=== PATIENT | female | born 1965 | race Caucasian/White ===

== ENCOUNTER → 2016-07-04 | Outpatient (CLI) | payer OTHER ==
[~2016-07-04] MED LIST: BLAC1TAB PO; CALCTAB5 PO; CHOL100010 PO; FEXO1TAB46 PO; FLUO20CA35 PO; LAMO25TA PO; LORA-741 PO; MELO7.5T5 PO; MULT-330 PO; OMEG10007 PO; PRLSR20 PO; RANI150T3 PO
--- NOTE | 2016-07-04 19:28 | DIAGNOSTIC IMAGING REPORT ---
LUMBAR SPINE 5 VIEWS CLINICAL HISTORY: Low back pain. FINDINGS: Five views of the lumbar spine are correlated with abdominal CT dated 08/04/2006. The skeletal structures are osteopenic. There is no radiographic evidence of fracture or malalignment. Vertebral body height is maintained throughout the lumbar spine. There is minimal retrolisthesis at L2-L3. Alignment is otherwise preserved. Mild hyperlordosis is noted. The transverse and spinous processes appear intact. There is no evidence of spondylolysis. Anterior osteophytes are seen throughout. There is advanced degenerative disc space narrowing at L4-L5 and L5-S1 with associated endplate sclerosis. Only mild narrowing is seen at the remaining lumbar levels. The bony pelvis is intact as visualized. There is a nonobstructed abdominal bowel gas pattern. IMPRESSION: 1. No acute bony abnormality is seen in the lumbosacral spine. 2. Osteopenia and spondylotic change as above. Dictated: 07/04/2016 7:06 PM Transcribed: 07/04/2016 7:28 PM [email or web address] Electronically signed by: Jong Oden M.D. 07/04/2016 7:28 PM Dictated Date/Time: 07/04/2016 7:06 PM
== END | disposition home or self-care (01) ==
LOC: C.RAD 16:25
PROVIDERS: ATTEND Nurse Practitioner Family
DX: M54.5 Low back pain (principal); M85.88 Other specified disorders of bone density and structure, other site

== ENCOUNTER 2017-01-20 16:14 | Emergency (ER) | payer OTHER ==
[~2017-01-20] VITALS: Ht 160 cm; Wt 108.7 kg
[~2017-01-20 16:14] MED LIST changes: -BLAC1TAB PO; -FLUO20CA35 PO; -OMEG10007 PO; -PRLSR20 PO
[2017-01-20 16:30] VITALS: TEMP 36.6; Ht 160 cm; Wt 108.7 kg
--- NOTE | 2017-01-20 17:09 | DIAGNOSTIC IMAGING REPORT ---
L WRIST MIN 3 VIEWS ROUTINE CLINICAL HISTORY: 51 years-old Female presenting with fall; L wrist pain. TECHNIQUE: Frontal, bilateral oblique, and lateral views of the left wrist were obtained. COMPARISON: None. FINDINGS: Mild degenerative changes at the first carpometacarpal articulation evidence by osteophytosis. No acute fracture or malalignment. No radiographic soft tissue abnormality. IMPRESSION: No acute osseous injury of the left wrist. Electronically signed by: Stef Ansari M.D. 01/20/2017 5:07 PM Dictated Date/Time: 01/20/2017 5:07 PM
[2017-01-20] MEDS ORDERED: CALC-393 PO (17:13)
[2017-01-20] MEDS ORDERED: LXP/20 PO (17:13)
[2017-01-20] MEDS ORDERED: CHOL2000 PO (17:13)
[2017-01-20] MEDS ORDERED: LAMO1TAB21 PO (17:13)
[2017-01-20] MEDS ORDERED: OMEG10007 PO (17:17)
[2017-01-20 17:51] VITALS: BP 146/84; PULSE 67; O2SAT 95
--- NOTE | 2017-01-21 01:10 | EMERGENCY ROOM VISIT NOTE ---
ED Visit Note First contact with patient: 16:41 Chief Complaint: Fell and hurt my left wrist. History of Present Illness: Ms. Harrell is a 51-year-old white female who ambulates into the ED complaining of left distal radius and ulna pain. Patient reports approximately 2 hours ago she was walking across her yard to her mother's house, slipped and fell onto her left wrist. Since that time she has been having constant pain over the distal radius and ulna. She describes her pain as a burning and throbbing sensation. She rates her discomfort 6/10. Her pain is nonradiating. Her pain worsens with palpation of the distal radius and ulna but none in the anatomical snuffbox and flexion, extension and radial and ulnar deviation of the wrist. She is not identified any alleviating factors related to the pain. She has not taken any medications for pain prior to arrival at the hospital. Associated with her pain she does report that she did also fall onto her left knee and she is having a small amount of pain there but reports after the injury she was able to stand up and walk. She places this discomfort over the anterior aspect of the right knee. She does not rate her describe her discomfort. She reports her pain is minimal. She has not identified any aggravating or alleviating factors related to pain. She denies any associated lightheadedness, dizziness, striking her head, loss of consciousness at the time of the fall, any signs of head injury since the fall, neck pain, back pain, left shoulder and elbow pain, left hand weakness/ numbness/tingling, previous injuries to the wrist or surgeries, right hip pain, right lower leg pain, right lower leg weakness/numbness/tingling. Review of Systems: As noted above in history of present illness. 8 body systems were reviewed and found to be negative as noted above. Past Medical History: Depression, anxiety, GERD, seasonal allergies and status post tubal ligation and bunionectomy. Current Medications: Gena, multivitamin minerals, omega-3, Zantac, calcium, multivitamins, Lamotrigine, Escitalopram. Allergies to Medications: Wellbutrin, codeine. Social History: Patient is currently employed; she feels safe in her home environment; she denies tobacco and alcohol use. Physical Examination: Vital Signs: Date Time Temp Pulse Resp B/P (MAP) Pulse Ox O2 Delivery O2 Flow Rate FiO2 01/20/17 17:51 67 146/84 95 01/20/17 16:30 36.6 92 18 149/82 96 Room Air GENERAL: 51-year-old female in mild distress due to pain, nontoxic-appearing, afebrile and hemodynamically stable. NEUROLOGICAL: Awake, alert and oriented to person, place and time. Answering questions appropriately and following commands. SKIN: Warm, dry and pink. No soft tissue trauma noted. LEFT UPPER EXTREMITY: No gross bony deformity. No tenderness in the elbow, proximal forearm, hand. Moderate tenderness over the distal radius and ulna predominately over the anterior aspect of the wrist. No tenderness in the anatomical snuffbox. No gross bony deformity, bony crepitus, swelling or ecchymosis. Slight decreased range of motion in all movements at the wrist due to pain. Full range of motion and full muscle strength in flexion and extension of all MCP, PIP and DIP joints. Capillary refill is brisk. She is able to distinguish light sensations through all dermatomes. RIGHT LOWER EXTREMITY: No gross bony deformity. No shortening or malrotation. No tenderness in the hip, thigh, lower leg or ankle. Mild tenderness over the anterior aspect of the knee just lateral to the patella. In this area there is a soft tissue contusion. Negative patellar apprehension test. Negative bounce test. No tenderness over the medial and lateral joint lines. No ligamentous laxity of the collateral or cruciate ligaments. Full range of motion in flexion and extension of the knee and plantar flexion and dorsiflexion of the ankle. Throughout the foot the capillary refill is brisk. She is intact to light sensation and distal pulses are intact. ED Course: Patient is assessed as noted above. Patient's medication list was reviewed. Patient is given ice for pain and comfort; she refused pain medications. Left Wrist X-Rays: Were read by myself and the radiologist showing no acute fractures or dislocations. Patient was placed in a wrist lacer splint. Patient is educated about today's findings and instructed on her treatment plan ; she verbalized understanding and agreement with this plan. Clinical Impression: Left wrist pain. Right knee contusion. Status post fall. Disposition: Patient discharged home in stable condition; prior to departure she was reassessed and subjectively reported she was feeling slightly better and rated her discomfort 5/10. Plan: Comfort measures including rest, ice and splint use were discussed with the patient. Patient was signed off of 2 days of work. 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 Patient is encouraged return ED for worsening/uncontrolled pain, uncontrolled swelling, hand or leg weakness/numbness/tingling or any new/concerning symptoms.
== END 2017-01-20 17:53 | disposition home or self-care (01) ==
LOC: C.EDB 16:15 → C.EDD 17:53
DX: S69.92XA Unspecified injury of left wrist, hand and finger(s), initial encounter (principal); M25.532 Pain in left wrist; S80.01XA Contusion of right knee, initial encounter; W01.0XXA Fall on same level from slipping, tripping and stumbling without subsequent striking against object, initial encounter; Y92.017 Garden or yard in single-family (private) house as the place of occurrence of the external cause; F32.9 Major depressive disorder, single episode, unspecified; Z79.899 Other long term (current) drug therapy

== ENCOUNTER → 2017-03-27 | Outpatient (CLI) | payer OTHER ==
[~2017-03-27] MED LIST changes: +CALC-393 PO; -CALCTAB5 PO; -CHOL100010 PO; +CHOL2000 PO; +LAMO1TAB21 PO; -LAMO25TA PO; -LORA-741 PO; +LXP/20 PO; -MELO7.5T5 PO; +OMEG10007 PO
--- NOTE | 2017-03-27 14:27 | MAMMOGRAPHY REPORT ---
BILATERAL DIGITAL SCREENING MAMMOGRAM TOMOSYNTHESIS WITH CAD: 03/27/2017 CLINICAL HISTORY: Routine screening. Patient has no complaints. TECHNIQUE: Breast tomosynthesis in addition to standard 2D mammography was performed. Current study was also evaluated with a Computer Aided Detection (CAD) system. COMPARISON: Comparison is made to exams dated: 03/28/2016 mammogram, 03/19/2016 mammogram, 03/08/2014 mammogram, 02/08/2013 mammogram, 02/03/2013 mammogram, and 09/25/2010 mammogram - [facility]. BREAST COMPOSITION: There are scattered areas of fibroglandular density in both breasts. FINDINGS: No suspicious masses, calcifications, or areas of architectural distortion are noted in ei ther breast. There has been no significant interval change compared to prior exams. Scattered bilate ral benign-appearing calcifications are not significantly changed. IMPRESSION: ACR BI-RADS CATEGORY 2: BENIGN There is no mammographic evidence of malignancy. A 1 year screening mammogram is recommended. The pa tient will receive written notification of the results. Approximately 10% of breast cancers are not detected with mammography. A negative mammographic report should not delay biopsy if a clinically suggestive mass is present. Deborah Mcdaniel M.D. /:03/27/2017 12:24:32 Wire Twister: Tonya Theodore, [facility] letter sent: Normal 1/2 BI-RADS Code: ACR BI-RADS Category 2: Benign
== END | disposition home or self-care (01) ==
LOC: C.MAMM 09:23
PROVIDERS: ATTEND Family Medicine
DX: Z12.31 Encounter for screening mammogram for malignant neoplasm of breast (principal)